=== PATIENT | male | born 1995 | race Caucasian/White ===

== ENCOUNTER 2021-08-20 21:52 | Emergency (ER) | payer SELFPAY ==
[2021-08-20 22:00] VITALS: BP 147/89
[2021-08-20 22:30] VITALS: BP 122/83
[2021-08-20 22:52] LABS: HEMATOCRIT 44.8 % (39.0-50.0); HEMOGLOBIN 16.2 g/dl (14.0-18.0); IMMATURE GRANULOCYTES 0.1 % (0.0-5.0); MEAN CELL VOLUME 93.9 fL CALC (80.0-100.0); MEAN CORPUSCULAR HGB CONC 36.2 g/dL CAL (32.0-36.0); NEUT# 9.38 thou/uL (1.82-7.42); RED BLOOD COUNT 4.77 mill/uL (4.70-6.10); RED CELL DISTRI WIDTH 11.8 % (11.5-15.5)
[2021-08-20 23:13] LABS: ALBUMIN 4.8 g/dL (3.2-5.0); ALKALINE PHOSPHATASE 87 u/l (38-126); ANION GAP 14 (6-22 (CALC)); BILIRUBIN, TOTAL 0.5 mg/dL (0.0-1.4); BUN 9 mg/dL (9-20); BUN/CREATININE RATIO 11 (12-20 (CALC)); C-REACTIVE PROTEIN < 0.5 mg/dL (0-0.9); CARBON DIOXIDE 22 mmol/l (22-30); CHLORIDE 107 mmol/l (95-108); CPK 56 u/l (52-200); CREATININE 0.8 mg/dL (0.7-1.3); ETHYL ALCOHOL 0 mg/dl (0-30); GFR FOR AFR.AMER. > 60 ML/MIN (>=60 (CALC)); GFR OTHER RACES > 60 ML/MIN (>=60 (CALC)); POTASSIUM 3.6 mmol/l (3.5-5.1); SGOT/AST 24 u/l (17-59); SODIUM 140 mmol/l (137-146); TOTAL PROTEIN 7.7 g/dL (6.3-8.2)
[2021-08-20 23:14] LABS: ACT PARTIAL THROMBO TIME 24.2 SECONDS (20.0-32.5); PROTHROMBIN TIME 10.9 SECONDS (9.0-12.5)
[2021-08-20 23:18] VITALS: BP 127/86
[2021-08-20 23:18] LABS: MYOGLOBIN 22 ng/mL (0 - 121)
[2021-08-20 23:27] LABS: URINE BILIRUBIN - DIPSTICK NEGATIVE (NEGATIVE); URINE BLOOD DIPSTICK TRACE-INTACT (NEGATIVE); URINE COLOR YELLOW; URINE GLUCOSE - DIPSTICK NEGATIVE (NEGATIVE); URINE KETONE NEGATIVE (NEGATIVE); URINE LEUK ESTERASE NEGATIVE (NEGATIVE); URINE PROTEIN - DIPSTICK NEGATIVE (NEG-TRACE); URINE SPECIFIC GRAVITY >=1.030; URINE UROBILINOGEN - DIPSTICK 0.2 E.U./dL (0.2)
[2021-08-20 23:28] LABS: URINE NITRITE - DIPSTICK NEGATIVE (Negative)
[2021-08-20 23:30] VITALS: BP 123/73
[2021-08-20 23:40] LABS: TSH, 3RD GENERATION 2.81 uIU/mL (0.47 - 4.68)
[2021-08-21] VITALS: BP 138/75
[2021-08-21 00:30] VITALS: BP 137/85
[2021-08-21 01:00] VITALS: BP 116/71
[2021-08-21 01:30] VITALS: BP 121/72
[2021-08-21 02:00] VITALS: BP 119/100
[2021-08-21 02:07] VITALS: BP 119/100
== END 2021-08-21 02:05 | disposition home or self-care (01) | DRG 93 ==
LOC: ED 21:52
PROVIDERS: Family Medicine
DX: R20.2 Paresthesia of skin (principal); F17.210 Nicotine dependence, cigarettes, uncomplicated